=== PATIENT | female | born 1985 | race Hispanic/Latino ===

== ENCOUNTER → 2017-06-16 | Outpatient (CLI) | payer BC ==
--- NOTE | 2017-06-17 08:46 | Diagnostic Imaging Report ---
EXAMINATION: MRI of the cervical spine without contrast HISTORY: Neck and left shoulder pain for the last 2 weeks COMPARISON: None available TECHNIQUE: Sagittal T1, T2, STIR; axial T2, gradient echo. FINDINGS: Curvature: Normal lordosis. Vertebrae: No evidence of neoplasm, infection, or fracture. Foramen magnum: No mass, Chiari malformation, or basilar invagination. Spinal Cord: Normal size and signal intensity. Soft Tissues: Unremarkable. Degenerative changes: C1-C2 to C3-C4: Unremarkable. C4-C5: Mild symmetric disc bulge with tiny central disc protrusion and underlying annular fissuring. No canal or foraminal stenoses. C5-C6: Mild symmetric disc bulge with posterior annular fissuring. No canal or foraminal stenoses. C6-C7 and C7-T1: Unremarkable. IMPRESSION: Minimal degenerative changes of the disc at C5-C6 and C6-7 without spinal canal or foraminal stenosis. Particularly there is no evidence of nerve root compression. Signed by: Dr. Hue Lerner M.D. on 06/17/2017 8:43 AM
== END ==
LOC: MRI 14:03
PROVIDERS: ATTEND Internal Medicine
DX: M47.22 Other spondylosis with radiculopathy, cervical region (principal)
CPT/HCPCS: 72141

== ENCOUNTER → 2017-07-13 | Outpatient (CLI) | payer BC ==
--- NOTE | 2017-07-17 17:57 | Diagnostic Imaging Report ---
Examination: MRI SPINE LUMBAR WITHOUT CONTRAST History: Low back pain radiating to the bilateral lower extremities which began 2 weeks ago after heavy lifting. Comparison studies: None Technique: Sagittal, coronal and axial T2 , sagittal T1 and STIR; axial spin density oblique. Findings: Number of lumbar vertebral bodies: Five. Alignment: Normal lordosis. No scoliosis. Soft tissues: No T2 hyperintense inflammatory changes. Posterior paraspinal soft tissues and muscles: No abnormality. Lower thoracic cord: Normal in signal and morphology. The tip of the conus is at L1. Cauda equina: No masses. No arachnoiditis. Vertebrae: No fractures, infection or neoplasm. A 4 mm (anterior posterior dimension) bone island is demonstrated in the superior mid T12 vertebral body. Degenerative changes: L1-L2: No abnormalities. L2-L3: No abnormalities. L3-L4: Mild diffuse disc bulge. No foraminal or canal stenosis. L4-L5: Mild diffuse disc bulge and mild bilateral facet arthropathy. No foraminal or canal stenosis. Small bilateral facet joint effusions. L5-S1: No abnormalities. IMPRESSION: 1. Mild degenerative changes at L3-L4 and L4-L5 without canal or foraminal stenosis. 2. Small bilateral facet joint effusions at L4-L5. Signed by: Dr. Mar Marion M.D. on 07/17/2017 5:53 PM
== END ==
LOC: MRI 16:15
PROVIDERS: ATTEND Specialist
DX: M54.5 Low back pain (principal)
CPT/HCPCS: 72148